=== PATIENT | male | born 1985 | race Caucasian/White ===

== ENCOUNTER 2020-12-24 16:06 | Emergency (ER) | payer OTHER ==
[~2020-12-24] VITALS: Ht 172.7 cm; Wt 104.3 kg
[2020-12-24] MEDS ORDERED: AVAPRO300 MG (16:23)
[2020-12-24] MEDS ORDERED: NAPROXEN375 MG PO (20:09)
[2020-12-24] MEDS ORDERED: MUPIROCIN15 GM TOP (20:09)
== END 2020-12-24 20:22 | disposition home or self-care (01) ==
LOC: ER 16:06
DX: L03.115 Cellulitis of right lower limb (principal); M79.671 Pain in right foot

== ENCOUNTER 2022-03-19 15:47 | Outpatient (CLI) | payer OTHER ==
[~2022-03-19 15:47] MED LIST: AVAPRO300 MG; MUPIROCIN15 GM TOP; NAPROXEN375 MG PO
== END 2022-03-19 15:52 | disposition home or self-care (01) ==
LOC: LAB 15:47
PROVIDERS: ATTEND Obstetrics & Gynecology
DX: Z20.818 Contact with and (suspected) exposure to other bacterial communicable diseases (principal); Z20.828 Contact with and (suspected) exposure to other viral communicable diseases